=== PATIENT | male | born 1970 | race Caucasian/White ===

== ENCOUNTER 2022-06-07 07:19 | Outpatient (CLI) | payer BC, SELFPAY ==
--- OUTSIDE RECORDS SUMMARY | 2022-06-07 07:23 | XMS_ITS | Clinical Summary ---
:1970 Author Organization [facility] [place] [address] Care Team Providers Name Role Phone [facility] Primary Care Provider Allergies No known active allergies Medications No known medications Active Problems Not on file Social History Tobacco Use Types Packs/Day Years Used Date Never Smoker Smokeless Tobacco: Former User Chew Sex Assigned at Date Recorded Not on file Obstetrics History Last Filed Vital Signs Vital Sign Reading Time Taken Comments Blood Pressure 136/84 07/24/2017 3:02 PM CDT Pulse 104 07/24/2017 3:02 PM CDT Temperature 36.8 ??C (98.3 ??F) 07/24/2017 3:02 PM CDT Respiratory Rate 20 07/24/2017 3:02 PM CDT Oxygen Saturation 96% 07/24/2017 3:02 PM CDT Inhaled Oxygen Concentration - - Weight 86.2 kg (190 lb) 07/24/2017 3:02 PM CDT Height - - Body Mass Index - - Plan of Treatment Health Maintenance Due Date Last Done Comments COVID-19 vaccine series (#1) 1970 Tdap 1981 Depression screening for age 12+ 1982 BMI (ht and wt on same day) for age 18+ 1988 Hepatitis C screening for age 18-79 1988 Tetanus booster 1990 Colonoscopy through age 75 2015 Lipids for age 45-75 2015 Zoster (shingles) series for age 50+ (1 of 2) 2020 Influenza for age 50-64 06/07/2022 Results Not on filefrom Last 3 Months Insurance Payer Benefit Plan / Subscriber ID Effective Dates Phone Addre ss Type Group BLUE CROSS BLUE CROSS OF [id number] 2005-Present [address] [address] [place] [address] Care Teams Exhibit Display Representative Relationship Specialty Start Date End Date [place] [facility] [place] 04/16/07 [address] [place] [address]
--- OUTSIDE RECORDS SUMMARY | 2022-06-07 07:23 | XMS_ITS | Encounter Summary ---
:1970 Author Organization [facility] Address [address] [place] [address] Care Team Providers Name Role Phone Jennifer Foster MD Primary Care Provider Reason for Visit Reason Comments Cough x 2.5 weeks, productive, wor se when lying down Encounter Details Date Type Department Care Team Description 08/14/2021 Office Visit [place] Rhett Spear, Cough (Primary Dx); [address] Elevated blood pressure reading; [place], [place] [address] Elevated fasting glucose; [address] [place], [place] Elevated LDL cholesterol lev el [phone] Social History Tobacco Use Types Packs/Day Years Used Date Never Smoker Smokeless Tobacco: Current User Chew Alcohol Use Standard Drinks/Week Comments Not Currently 0 (1 standard drink = 0.6 oz pure alcoho l) Sex Assigned at Date Recorded Not on file documented as of this encounter Last Filed Vital Signs Vital Sign Reading Time Taken Comments Blood Pressure 134/85 08/14/2021 2:59 PM RESOURCE ENGINEER Pulse 98 08/14/2021 2:32 PM RESOURCE ENGINEER Temperature 36.6 ??C (97.9 ??F) 08/14/2021 2:32 PM RESOURCE ENGINEER Respiratory Rate 16 08/14/2021 2:32 PM RESOURCE ENGINEER Oxygen Saturation 94% 08/14/2021 2:32 PM RESOURCE ENGINEER Inhaled Oxygen Concentration - - Weight 86.5 kg (190 lb 9.6 oz) 08/14/2021 2:32 PM RESOURCE ENGINEER Height 173.5 cm (5' 8.31) 08/14/2021 2:32 PM RESOURCE ENGINEER Body Mass Index 28.72 08/14/2021 2:32 PM RESOURCE ENGINEER documented in this encounter Patient Instructions Patient InstructionsRhett Spear MD - 08/14/2021 2:20 PM CST Follow up in 1-2 weeks for general physical exam. Try tessalon sergio for cough, if not improving or if worsening let us know or go to ER. URCE ENGINEER documented in this encounter Progress Notes Rhett Spear MD - 08/14/2021 2:20 PM CST Subjective Patient ID: Colten Jay is a 51 y.o. male. Chief Complaint Patient presents with ??? Cough x 2.5 weeks, productive, worse when lying down HPI Patient is a 51-year-old without significant past medical history who reports 2.5 weeks of cough. Symptoms started after returning from a trip to [place] (was [place] hunting). Cough is worst when waking up in the morning and at night before bed. Lying down makes it worse. No shortness of breath with lying down. In the mornings he has some phlegm coming up in the cough. No hemoptysis. Denies fevers or chills. Has tried nyquil at night which does not help. No sick contacts. Has some mild allergies in the Spring but has not been bothering him recently. Denies lower extremity swelling. No heart palpitations or chest pain. The following portions of the patient's chart were reviewed in this encounter and updated as appropriate: Tobacco Allergies Meds Problems Med Hx Surg Hx Fam Hx Soc Hx ROS ROS done as noted in HPI Objective Visit Vitals BP 134/85 Pulse 98 Temp 36.6 ??C (97.9 ??F) (Temporal) Resp 16 Ht 1.735 m (5' 8.31) Wt 86.5 kg (190 lb 9.6 oz) SpO2 94% BMI 28.72 kg/m?? Smoking Status Never Smoker BSA 2.04 m?? Physical Exam Vitals reviewed. Constitutional: General: He is not in acute distress. Appearance: He is not ill-appearing, toxic-appearing or diaphoretic. HENT: Mouth/Throat: Mouth: Mucous membranes are moist. Pharynx: No oropharyngeal exudate. Cardiovascular: Rate and Rhythm: Normal rate and regular rhythm. Heart sounds: No murmur heard. Pulmonary: Effort: Pulmonary effort is normal. No respiratory distress. Breath sounds: Rhonchi present. No wheezing or rales. Chest: Chest wall: No tenderness. Neurological: Mental Status: He is alert. Assessment/Plan Diagnosis Plan 1. Cough benzonatate (TESSALON) 200 MG capsule 2. Elevated blood pressure reading CBC Branch Off w/Diff Basic metabolic panel 3. Elevated fasting glucose Hemoglobin A1c 4. Elevated LDL cholesterol level Lipid panel Assessment is a viral URI. Tessalon pearls and symptomatic cares. Return if worsening. Also noted history of elevated fasting glucose and LDL, he will return later this week fasting for labs. Blood pressure is also elevated Patient Instructions Follow up in 1-2 weeks for general physical exam. Try tessalon sergio for cough, if not improving or if worsening let us know or go to ER. Return in about 4 days (around 08/18/2021) for Lab visit (fasting). URCE ENGINEER documented in this encounter Plan of Treatment Not on filedocumented as of this encounter Results (ABNORMAL) Lipid panel (08/18/2021 10:01 AM RESOURCE ENGINEER) athologist Signature Cholesterol 178 0 - 199 08/18/2021 [facility] mg/dL 6:49 PM [facility] Comment: Recommended by National Cholesterol Education Program (ATP III) -------- Cholesterol Ranges -------- <200 ?Desirable 200-239 ? Borderline high >=240 ? High Triglycerides 111 0 - 149 mg/dL 08/18/2021 6:49 PM [facility] Comment: -------- TRIG Ranges -------- <150 ?Normal 150-199 ? Borderline high 200-499 ? High >=500 ? Very high HDL 37 (L) 40 - 250 mg/dL 08/18/2021 6:49 PM [facility] Comment: -------- HDL Ranges -------- <40 ?Low 40-59 ?Normal >=60 ? Optimal LDL Calculated 119 (H) 0 - 99 mg/dL 08/18/2021 6:49 PM RESOURCE ENGINEER [facility] Comment: -------- LDL Ranges -------- <100 ? Optimal 100-129 ?Near optimal/above op timal 130-159 ?Borderline high 160-189 ?High >=190 ?Very high Fasting? Yes 08/18/2021 10:12 AM RESOURCE ENGINEER [facility] Specimen Anatomical Collection Method Collection Time Receive d Time (Source) Location / / Volume Laterality Blood (Blood, 08/18/2021 10:01 08/18/2021 6:07 Venous) AM RESOURCE ENGINEER PM RESOURCE ENGINEER Rhett Spear MD LAB BLOOD ORDERABLES Performing Organization Address City/State/ZIP Code Phon e Number [facility] [address] [place] [phone] (ABNORMAL) Basic metabolic panel (08/18/2021 10:01 AM RESOURCE ENGINEER) P athologist Signature Sodium 141 135 - 145 08/18/2021 [facility] mmol/L 2:59 PM RESOURCE ENGINEER [place] Potassium 4.3 3.5 - 5.1 08/18/2021 [facility] mmol/L 2:59 PM RESOURCE [facility]INE[facility] [place] Comment: . Chloride 105 98 - 107 mmol/L 08/18/2021 2:59 PM RESOURCE ENGINEER [facility] [place] Comment: . CO2 28 22 - 31 mmol/L 08/18/2021 2:59 PM RESOURCE ENGINEER [facility] [place] Comment: . Creatinine 0.7 0.6 - 1.4 mg/dL 08/18/2021 2:59 PM RESOURCE ENGINEER [facility] [place] Comment: . BUN 14 5 - 25 mg/dL 08/18/2021 2:59 PM RESOURCE ENGINEER [facility] [place] Comment: . Glucose 182 (H) 70 - 100 mg/dL 08/18/2021 2:59 PM RESOURCE ENGINEER [facility] [place] Calcium, Total,S 9.3 8.4 - 10.2 mg/dL 08/18/2021 2:59 PM RESOURCE ENGINEER [facility] [place] Comment: . Specimen Anatomical Collection Method Collection Time Receive d Time (Source) Location / / Volume Laterality Blood (Blood, 08/18/2021 10:01 08/18/2021 Venous) AM RESOURCE ENGINEER 10:12 AM RESOURCE ENGINEER Rhett Spear MD LAB BLOOD ORDERABLES Performing Organization Address City/State/ZIP Code Phon e Number [facility] [address] [place] [address] CBC Branch Off w/Diff (08/18/2021 10:01 AM RESOURCE ENGINEER) P athologist Signature WBC 6.6 3.5 - 10.5 08/18/2021 [facility] K/uL 10:14 AM RESOURCE ENGINEER [place] RBC 5.24 4.30 - 08/18/2021 [facility] 5.70 M/uL 10:14 AM RESOURCE ENGINEER [place] Hemoglobin 15.5 13.5 - 08/18/2021 [facility] 17.5 g/dL 10:14 AM RESOURCE ENGINEER [place] Hematocrit 44.7 38.0 - 08/18/2021 [facility] 50.0 % 10:14 AM RESOURCE ENGINEER [place] Platelets 294 150 - 450 08/18/2021 [facility] K/uL 10:14 AM RESOURCE ENGINEER [place] MCV 85.3 81.2 - 08/18/2021 [facility] 95.1 fL 10:14 AM RESOURCE ENGINEER [place] MCH 29.6 26.0 - 08/18/2021 [facility] 32.0 pg 10:14 AM RESOURCE ENGINEER [place] MCHC 34.7 32.0 - 08/18/2021 [facility] 36.0 g/dL 10:14 AM RESOURCE ENGINEER [place] RDW 12.3 11.8 - 08/18/2021 [facility] 15.6 % 10:14 AM RESOURCE ENGINEER [place] Lymphocytes % 34.3 % 08/18/2021 [facility] 10:14 AM RESOURCE ENGINEER [place] Mid-size Cells 11.3 % 08/18/2021 [facility] 10:14 AM RESOURCE ENGINEER [place] Granulocytes/Nora 54.4 % 08/18/2021 [facility] trophils 10:14 AM RESOURCE ENGINEER [place] Lymphocytes 2.3 0.9 - 2.9 08/18/2021 [facility] Absolute K/uL 10:14 AM RESOURCE ENGINEER [place] MIDS Absolute 0.7 0.4 - 1.5 08/18/2021 [facility] K/uL 10:14 AM RESOURCE ENGINEER [place] Granulocytes/Nora 3.6 1.7 - 7.0 08/18/2021 [facility] trophils K/uL 10:14 AM RESOURCE ENGINEER [place] Absolute Specimen Anatomical Collection Method Collection Time Receive d Time (Source) Location / / Volume Laterality Blood 08/18/2021 10:01 08/18/2021 AM RESOURCE ENGINEER 10:12 AM RESOURCE ENGINEER Rhett Spear MD LAB BLOOD ORDERABLES Performing Organization Address City/[facility]/ZIP Code Phon e Number [facility] [place] [address] [place] [address] (ABNORMAL) Hemoglobin A1c (08/18/2021 10:01 AM RESOURCE ENGINEER) Analysis Performed At Patho logist Time Signature Hemoglobin A1C 8.9 (H) 4.0 - 5.6 08/18/2021 [place] % A1C 8:37 PM [facility] Comment: Reference Range 4.0-5.6% is for non-preg nant adults >=18 yrs <5.6% ? Non-Diabetic 5.7-6.4% ??Increased risk of Diabetes >=6.5% ?Indicative of Diabetes <7.0% ? ADA goal for glycemic contro l Methodology may not detect all hemoglobi n variants which can affect A1c results. Method certified by National Glycohemoglobin Standardization Program. Specimen Anatomical Collection Method Collection Time Receive d Time (Source) Location / / Volume Laterality Blood (Blood, 08/18/2021 10:01 08/18/2021 6:07 Venous) AM RESOURCE ENGINEER PM RESOURCE ENGINEER Rhett Spear MD LAB BLOOD ORDERABLES Performing Organization Address City/State/ZIP Code Phon e Number [facility] [address] [place] [address] documented in this encounter Visit Diagnoses Diagnosis Cough - Primary Elevated blood pressure reading Elevated blood pressure reading without diagnosis of hypertension Elevated fasting glucose Impaired fasting glucose Elevated LDL cholesterol level documented in this encounter Care Teams Clinical Informatics Specialist Relationship Specialty Start Date End Date Jennifer Fotser MD PCP - General 05/13/[address] [place] [address] documented as of this encounter
--- OUTSIDE RECORDS SUMMARY | 2022-06-07 07:23 | XMS_ITS | Encounter Summary ---
:1970 Author Organization [facility] Address [address] [place] [address] Care Team Providers Name Role Phone Jennifer Foster MD Primary Care Provider Encounter Details Date Type Department Care Team Description 11/21/2021 Lab Pb Villal[place] Type 2 diabetes mellitus [address] without complication, withou t CHE [place] 550 [address] long-term current use of [phone] insulin (HCC) Social History Tobacco Use Types Packs/Day Years Used Date Never Smoker Smokeless Tobacco: Current User Chew Alcohol Use Standard Drinks/Week Comments Not Currently 0 (1 standard drink = 0.6 oz pure alcoho l) Sex Assigned at Date Recorded Not on file documented as of this encounter Miscellaneous Notes Result Encounter Note - Rhett Spear MD - 11/21/2021 4:15 PM CST Reviewed results with patient. His A1c came down to 6.2 from 8.9 which is great. We discussed the microalbuminuria, consider adding SGLT2 inhibitor or low-dose lisinopril for kidney protection. Patientprefers to wait till next year recheck and see what his urine protein looks like at that time. ATRICIAN/MEDICAL DOCTOR documented in this encounter Plan of Treatment Not on filedocumented as of this encounter Procedures Procedure Name Priority Date/Time Associated Comments Diagnosis MICROALBUMIN/CREATIN Routine 11/21/2021 3:38 PM Type 2 diabete s Results for this INE RATIO PEDIATRICIAN/MEDICAL DOCTOR mellitus without procedure a re in complication, the results without long-term section. current use of insulin (HCC) HEMOGLOBIN A1C Routine 11/21/2021 3:32 PM Type 2 diabetes Resu lts for this PEDIATRICIAN/MEDICAL DOCTOR mellitus without procedure a re in complication, the results without long-term section. current use of insulin (HCC) documented in this encounter Results (ABNORMAL) Microalbumin/Creatinine Ratio (11/21/2021 3:38 PM PEDIATRICIAN/MEDICAL DOCTOR) Analysis Performed At [facility] Signature Microalbumin,m 30.2 (H) 0.0 - 16.6 11/22/2021 [place] g/day mg/L 1:48 PM [facility] Comment: . Creatinine, Urine 125 mg/dL 11/22/2021 1:48 PM PEDIATRICIAN/MEDICAL DOCTOR [facility] Comment: No established reference range. Microalb/Creat Ratio 24 (H) 0 - 16 mg/g 11/22/2021 1:48 P M [facility] Specimen Anatomical Collection Method Collection Time Receive d Time (Source) Location / / Volume Laterality Urine 11/21/2021 3:38 PM PEDIATRICIAN/MEDICAL DOCTOR 12:37 PM PEDIATRICIAN/MEDICAL DOCTOR Rhett Spear MD LAB URINE ORDERABLES Performing Organization Address City/[facility] Phon e Number [facility] [address] [place] [phone] (ABNORMAL) Hemoglobin A1c (11/21/2021 3:32 PM PEDIATRICIAN/MEDICAL DOCTOR) Analysis Performed At [facility] Signature Hemoglobin A1C 6.2 (H) 4.0 - 5.6 11/22/2021 [place] % A1C 1:47 PM [facility] Comment: Reference Range 4.0-5.6% is [...] Location / / Volume Laterality Blood (Blood, 11/21/2021 3:32 PM 11/22/19 22 Venous) PEDIATRICIAN/MEDICAL DOCTOR 12:37 PM PEDIATRICIAN/MEDICAL DOCTOR Rhett Spear MD LAB BLOOD ORDERABLES Performing Organization Address City/State/ZIP Code Phon e Number [facility] [address] [place] [address] documented in this encounter Visit Diagnoses Diagnosis Type 2 diabetes mellitus without complic ation, without long-term current use of insulin (HCC) documented in this encounter Care Teams Stevedore Dock Relationship Specialty Start Date End Date Jennifer Foster MD PCP - General 05/13/[address] [place] [address] documented as of this encounter
--- OUTSIDE RECORDS SUMMARY | 2022-06-07 07:23 | XMS_ITS | Clinical Summary ---
:1970 Author Organization [facility] Address [address] [place] [address] Care Team Providers Name Role Phone Jennifer Foster MD Primary Care Provider Allergies No known active allergies Medications Medication Sig Dispensed Refills Start Date End Date Status atorvastatin Take 1 tablet 90 tablet 3 08/21/2021 Ac tive (Lipitor) 10 MG (10 mg total) by tabletIndications: mouth 1 (one) Type 2 diabetes time each day mellitus without complication, without long-term current use of insulin (HCC) metFORMIN XR Take 4 tablets 360 tablet 3 11/21/2021 11/21/2022 Active (GLUCOPHAGE-XR) 500 (2,000 mg total) MG 24 hr by mouth 1 (one) tabletIndications: time each day Type 2 Diabetes with dinner Do Mellitus not crush, chew, or split. Active Problems Problem Noted Date Type 2 diabetes mellitus without complication, without long-term current 08/21/2021 use of insulin Dyslipidemia (high LDL; low HDL) 08/21/2021 Encounters Date Type Specialty Care Team Description 05/18/2022 Consult Family Medicine Rhett Spear MD Pre -op evaluation (Primary Dx); Colon cancer sc reening; Type 2 diabetes mellitus without complication, without long-term current use of insulin (HCC) 05/07/2022 Telephone Family Medicine Rhett Spear MD Col onoscopy referral from Last 3 Months Immunizations Name Administration Dates Next Due COVID-19, mRNA, LNP-S, PF, 30mcg/0.3mL 09/25/2021 dose Pfizer SARS-COV-2 (COVID-19) vaccine, vector 09/25/2021, 01/24/2021 , 01/03/2021 non-replicating, recombinant spike protein- Ad26, preservative free, 0.5mL ([employer]) Family History Medical History Relation Comments Diabetes Mother Relation Status Comments Mother Social History Tobacco Use Types Packs/Day Years Used Date Never Smoker Smokeless Tobacco: Current User Chew Alcohol Use Standard Drinks/Week Comments Not Currently 0 (1 standard drink = 0.6 oz pure alcoho l) Sex Assigned at Date Recorded Not on file Last Filed Vital Signs Vital Sign Reading Time Taken Comments Blood Pressure 125/74 05/18/2022 8:14 AM CDT Pulse 63 05/18/2022 8:14 AM CDT Temperature 36.5 ??C (97.7 ??F) 05/18/2022 8:14 AM CDT Respiratory Rate 12 05/18/2022 8:14 AM CDT Oxygen Saturation 96% 05/18/2022 8:14 AM CDT Inhaled Oxygen Concentration - - Weight 73.3 kg (161 lb 11.2 oz) 05/18/2022 8:14 AM CDT Height 173 cm (5' 8.11) 05/18/2022 8:14 AM CDT Body Mass Index 24.51 05/18/2022 8:14 AM CDT Plan of Treatment Health Maintenance Due Date Last Done Comments Colorectal Cancer Screenin1970 Colonoscopy [facility] Pneumococcal Vaccine: 1976 65+ Years (1 - PCV) [facility] Pneumococcal Vaccine: 1976 <64 (1 - PCV) Diabetic Foot Exam 08/21/2022 08/21/2021, 08/21/2021, 08/21/2021 Ophthalmology Exam 10/05/2022 10/05/2021 Urine Protein Screening 11/21/2022 11/21/2021 COVID-19 Vaccine Completed 09/25/2021, 09/25/2021, 01/24/2021, Additional history exists HPV Vaccines Aged Out No longer eligib alpesh based on patient 's age to complete this topic Insurance Payer Benefit Plan / Subscriber ID Effective Dates Phone Addre ss Type Group BCBS OF BCBS OF [id number] 2021-Prese [address] [address] [place] [address] Care Teams Printer Repair Technician Relationship Specialty Start Date End Date Jennifer Foster MD PCP - General 05/13/[address] [place] [address]
--- OUTSIDE RECORDS SUMMARY | 2022-06-07 07:23 | XMS_ITS | Encounter Summary ---
:[address] [facility] Address [address] [place] [address] Care Team Providers Name Role Phone Jennifer Foster MD Primary Care Provider Reason for Referral Consultation (Routine) - Authorized Specialty Diagnoses / Procedures Referred By Contact Refer red To Contact Diagnoses Colon cancer screening Rhett Spear MD [facility] [address] [place] [place] [phone] Referral ID Status Reason Start Date Expiration Date Visits V isits Requested Authorized [id number] Authorized 05/07/2022 11/03/2022 1 1 Reason for Visit Reason Onset Date Comments Colonoscopy referral 05/07/2022 Encounter Details Date Type Department Care Team Description 05/07/2022 Telephone [place] Rhett Spear, Colonoscopy referral [address] [place], [place] [address] [address] [place] [phone] [place] [address] (Wo rk) Social History Tobacco Use Types Packs/Day Years Used Date Never Smoker Smokeless Tobacco: Current User Chew Alcohol Use Standard Drinks/Week Comments Not Currently 0 (1 standard drink = 0.6 oz pure alcoho l) Sex Assigned at Date Recorded Not on file documented as of this encounter Miscellaneous Notes Telephone Encounter - Eloise Garg - 05/07/2022 4:58 PM CDT Faxed referral to [facility] General Referral Line. Changed 05.18.22 appt to pre-op (awaiting DOS for colonoscopy). Telephone Encounter - Christiane Lobo RN - 05/07/2022 4:41 PM CDT Patient has been advised. Please fax. Also, patient has appointment 05/18. Spoke with PCP and he advises to make the visit a pre-op. Thank you. Telephone Encounter - Christiane Lobo RN - 05/07/2022 4:07 PM CDT Saw PCP 11/21/21 and was told to let provider know when he was ready. Patient is ready for the referral. Has 6-month follow up appointment 05/18/22 with PCP. Order it now or wait to discuss at appointment? (Patient would like to get it scheduled early June in [place], not [facility]). Please advise. Telephone Encounter - Sierra Angel - 05/07/2022 3:05 PM CDT Pt stopped in asking to start the referral process for a colonoscopy, any where EXCEPT [facility]. Pt would love this to be on 06/07/22 but if that's not possible it needs to be on a Saturday. Please call Pt at [phone] to advise. documented in this encounter Plan of Treatment Scheduled Referrals Name Type Priority Associated Order Schedule Diagnoses Ambulatory External Outpatient Referral Routine Colon cancer O rdered: Referral screening 05/07/2022 documented as of this encounter Visit Diagnoses Diagnosis Colon cancer screening - Primary Special screening for malignant neoplasm s, colon documented in this encounter Care Teams Plastic Manager Relationship Specialty Start Date End Date Jennifer Foster MD PCP - General 05/13/[address] [place] [address] documented as of this encounter
--- OUTSIDE RECORDS SUMMARY | 2022-06-07 07:23 | XMS_ITS | Encounter Summary ---
:[address] [facility] Address [address] [place] [address] Care Team Providers Name Role Phone Jennifer Foster MD Primary Care Provider Reason for Visit Consultation (Routine) - Authorized Specialty Diagnoses / Procedures Referred By Contact Refer red To Contact Nutrition Education / Diagnoses Type 2 diabetes mellitus without complication, without long-term current use of insulin (HCC) Rhett Spear, Nutrition [address] [place] [address] Referral ID Status Reason Start Expiration Visits Visits Date Date Requested Authorized [id number] Authorized Specialty 08/21/2022 1 1 Services 1 Required Encounter Details Date Type Department Care Team Description 08/24/2021 Telemedicine SE Nutrition Educati on Bandar Whitman, Type 2 diabetes [address] [facility] [facility] [place] [address] [address] [facility] complication, without [phone] long-term current use [place] of insulin (HC C) [id number] Social History Tobacco Use Types Packs/Day Years Used Date Never Smoker Smokeless Tobacco: Current User Chew Alcohol Use Standard Drinks/Week Comments Not Currently 0 (1 standard drink = 0.6 oz pure alcoho l) Sex Assigned at Date Recorded Not on file documented as of this encounter Progress Notes Bandar Whitman RD - 08/24/2021 7:30 AM CST [facility] Patient Name: Colten Jay Patient Identifier: [id number] Service Location: [facility] NUTRITION EDUCATION [address] [facility] [address] Service Date: 08/24/2021 Initial/Comprehensive Diabetes Visit- RD Visit LOCATION: Pending Sale To [facility]- Telehealth REFERRING CLINICIAN: Dr. Rhett Spear REFERRAL DATE: 08/21/2021 REASON FOR REFERRAL: Comprehensive/initial education REASON FOR REFERRAL: Type 2 Diabetes Mellitus, uncontrolled CLINICAL ASSESSMENT: Patient Age: 51 y.o. Height: BP Readings from Last 1 Encounters: 08/21/21 112/74 Weight: Wt Readings from Last 1 Encounters: 08/21/21 86.6 kg (191 lb) BMI: Estimated body mass index is 28.78 kg/m?? as calculated from the following: Height as of 08/14/21: 1.735 m (5' 8.31). Weight as of 08/21/21: 86.6 kg (191 lb). Basal Calorie Needs: Race/Ethnicity: White/ Preferred Language: PERTINENT LABS: Hemoglobin A1C Lab Results Component Value Date HGBA1C 8.9 (H) 08/18/2021 LIPIDS Lab Results Component Value Date CHOL 178 08/18/2021 CHOL 200 (A) 07/31/2017 Lab Results Component Value Date HDL 37 (L) 08/18/2021 HDL 53 07/31/2017 Lab Results Component Value Date LDLCALC 119 (H) 08/18/2021 LDLCALC 131 (A) 07/31/2017 Lab Results Component Value Date TRIG 111 08/18/2021 TRIG 78 07/31/2017 MEDICATIONS: Last updated by: Nubia Najera RN On: 08/21/2021 NUTRITIONAL DIAGNOSIS: Nutritional Diagnosis: Excessive carbohydrate intake- Related to high carbohydrate intake at meals/snacks- Evidenced by patient's report/questions. INTERVENTION AND EVALUATION: Patient was seen for 30 minutes of which 90% was spent on education given on the following areas with post instruction knowledge assessed: HEALTHY EATING Food choices to control blood sugar- Needs review/assistance. Patient is here for nutrition education appointment. This is his initial visit with a dietitian. States he is very motivated to make lifestyle modifications to manage his diabetes. He is not interestedin checking his blood sugar or meeting with a primary special educator at this point. States since finding out about the diagnosis he has cut back in his consumption of candy and is reducing his portions. Reviewed his 24 food recall, for breakfast he usually has leftovers from the night before and fruit. In between meals he is snacking on fruit. Evening meals are usually balanced, a starch, lean protein andvegetable. States he knows what he needs to do to lose weight as he has been successful in the past.He would like to get down to 160- 170 pounds. BEING ACTIVE Types of activity and their effect on blood sugar, cholesterol, blood pressure and weight- Needs review/assistance. Patient states he is very active in his job. He walks on average 3 to 4 miles a day. His doctor saidthat he will need to incorporate activity that gets his heart rate up. He does have a membership to [employer] and will consider going 1-2 times a week. MEDICATION Metformin XR 500 PROBLEM SOLVING How to deal with specific problems about healthy eating- Needs review/assistance. ADDITIONAL EDUCATION IS: needed TOTAL DSMT MINUTES: TOTAL MNT MINUTES: 35 DIABETES SELF-MANAGEMENT SUPPORT PLAN: For ongoing support, I choose to review materials provided to him. GOAL SETTING AND ACHIEVEMENT: 1. To help manage diabetes, I will limit consumption of candy. Patient reported achievement: New goal. 2. To help manage diabetes, I will limit portions and follow the plate guide. Patient reported achievement: New goal. 3. To help manage weight, I will continue incorporate regular physical activity. Patient reported achievement: New goal. MONITORING GOAL: To bring blood sugars into normal range, I will take my medications as directed by my Primary Care Provider. Patient achievement:: All of the time Bandar Whitman RD IT[place] PORTER documented in this encounter Plan of Treatment Scheduled Referrals Name Type Priority Associated Order Schedule Diagnoses Ambulatory referral Outpatient Referral Routine Type 2 diabete s Ordered: to Nutrition mellitus without 08/21/2021 Services complication, without long-term current use of insulin (HCC) documented as of this encounter Visit Diagnoses Diagnosis Type 2 diabetes mellitus without complic ation, without long-term current use of insulin (HCC) documented in this encounter Care Teams Budget Clerk Relationship Specialty Start Date End Date Jennifer Foster MD PCP - General 05/13/[address] [place] [address] documented as of this encounter
--- OUTSIDE RECORDS SUMMARY | 2022-06-07 07:23 | XMS_ITS | Encounter Summary ---
:[address] [facility] Address [address] [place] [address] Care Team Providers Name Role Phone Jennifer Foster MD Primary Care Provider Reason for Visit Reason Comments Pre-op Exam colonoscopy Encounter Details Date Type Department Care Team Description 05/18/2022 Consult [place] Rhett Spear, Pre-op evaluation (Primary D x); [address] [facility] screening; [place], [place] [address] [place] Type 2 diabetes mellitus without complic ation, without long-term current use of insulin ([facility]) [phone] [place] [phone] (Wo rk) Social History Tobacco Use Types [...] Mass Index 24.51 05/18/2022 8:14 AM CDT documented in this encounter Patient Instructions Patient InstructionsCharfernandez Spear MD - 05/18/2022 8:00 AM CDT Call [facility] about the COVID testing, and let us know if you can do it here if needed. If you want to decrease metformin to 1000 mg nightly that is fine, but OK to continue at 2000 mg nightly documented in this encounter Progress Notes Sierra Angel - 05/18/2022 8:00 AM CDT Colonoscopy pre-op paperwork faxed to [facility]. documented in this encounter H&P Notes Rhett Spear MD - 05/18/2022 8:00 AM CDT Preoperative evaluation Assessment/Plan Colten Jay is an 52 y.o. male. Here for a preoperative evaluation for colonoscopy. This surgery is scheduled to be performed by [facility] surgeons 06/07/2022. The preoperative risk assessment has determined the following: No contraindications to planned surgery Colten was seen today for pre-op exam. Diagnoses and all orders for this visit: Pre-op evaluation (Primary) Colon cancer screening Type 2 diabetes mellitus without complication, without long-term current use of insulin (HCC) - Hemoglobin A1c; Future - Lipid panel; Future - Basic metabolic panel; Future - CBC Branch Off w/Diff; Future Labs as above are for annual diabetic follow-up in 6 months, do not need to be performed prior to colonoscopy. HPI: Patient is here for preoperative evaluation for colonoscopy for colon cancer screening. Patient is a fairly recently diagnosed type II diabetic on metformin and atorvastatin. He has lost about 30 pounds, watching his diet and exercising. His last A1c was 6.2 on 11/21/2021. Is wondering if he needs fasting labs today. His last lipid panel was August 2021, same time he was diagnosed with type 2 diabetes. No recent illness. Patient states he supposed to get COVID tested prior to the colonoscopy. No personal or family history of reactions to anesthesia or bleeding problems. His only prior procedure in his lifetime was wisdom teeth removal. He had no problems with that. Current Outpatient Medications: ??? atorvastatin (Lipitor) 10 MG tablet, Take 1 tablet (10 mg total) by mouth 1 (one) time each day,Disp: 90 tablet, Rfl: 3 ??? metFORMIN XR (GLUCOPHAGE-XR) 500 MG 24 hr tablet, Take 4 tablets (2,000 mg total) by mouth 1 (one) time each day with dinner Do not crush, chew, or split., Disp: 360 tablet, Rfl: 3 Allergies: Patient has no known allergies. History reviewed. No pertinent surgical history. Past Medical History: Diagnosis Date ??? Diabetes mellitus (HCC) Family History Problem Relation Age of Onset ??? Diabetes Mother Social History Socioeconomic History ??? Marital status: Tobacco Use ??? Smoking status: Never Smoker ??? Smokeless tobacco: Current User Types: Chew Vaping Use ??? Vaping Use: Never used Substance and Sexual Activity ??? Alcohol use: Not Currently Review of Systems Constitutional: Negative. Negative for chills and fever. Respiratory: Negative for cough and shortness of breath. Cardiovascular: Negative for chest pain and palpitations. Objective Pulmonary Risk SpO2: 96 % Visit Vitals BP 125/74 (BP Location: Left arm, Patient Position: Sitting, BP Cuff Size: Adult) Pulse 63 Temp 36.5 ??C (97.7 ??F) (Temporal) Resp 12 Ht 1.73 m (5' 8.11) Wt 73.3 kg (161 lb 11.2 oz) SpO2 96% BMI 24.51 kg/m?? Smoking Status Never Smoker BSA 1.88 m?? Physical Exam Vitals reviewed. Constitutional: Appearance: He is not ill-appearing or diaphoretic. Cardiovascular: Rate and Rhythm: Normal rate and regular rhythm. Heart sounds: Normal heart sounds. No murmur heard. Pulmonary: Effort: Pulmonary effort is normal. No respiratory distress. Breath sounds: Normal breath sounds. No wheezing or rales. Neurological: Mental Status: He is alert. Radiology Tests to be Ordered: None Additional Tests to be Ordered: None Laboratory Tests to be Ordered: None Special Note to Anesthesia if needed: None Referrals/Consultations: None Comments: You should not drive for at least 24 hours after your surgery, or as instructed by your surgeon. Do NOT take ibuprofen, Aleve and Aspirin 7 days prior to surgery. Do NOT take vitamins or other nutritional supplements 7 days prior to surgery. You will receive detailed instructions from your doctor about which of your usual medications to take and which NOT to take before surgery. If you have been instructed to take any medications on the morning of surgery, take them with a small sip of water. Otherwise, remember to NOT take any foods or liquids by mouth after MIDNIGHT the evening before surgery. If you have been told that you will be going home after surgery and not staying overnight in the hospital, remember to bring a friend or family member with you the day of surgery who can stay with you during your recovery period and who can drive you home. Medication Instructions: Patient takes atorvastatin and metformin in the evening. No change to medication regimen. documented in this encounter Plan of Treatment Scheduled Orders Name Type Priority Associated Diagnoses Order S chedule Hemoglobin A1c Lab Routine Type 2 diabetes mellitus E xpected: 11/18/2022 without complication, (Appro ximate), Expires: without long-term current use of insulin (HCC) CBC Branch Off w/Diff Lab Routine Type 2 diabetes ney litus Expected: 11/18/2022 without complication, (Appro ximate), Expires: without long-term current use of insulin (HCC) Basic metabolic panel Lab Routine Type 2 diabetes ney litus Expected: 11/18/2022 without complication, (Appro ximate), Expires: without long-term current use of insulin (HCC) Lipid panel Lab Routine Type 2 diabetes mellitus Exp ected: 11/18/2022 without complication, (Appro ximate), Expires: without long-term current use of insulin (HCC) documented as of this encounter Visit Diagnoses Diagnosis Pre-op evaluation - Primary Colon cancer screening Special screening for malignant neoplasm s, colon Type 2 diabetes mellitus without complic ation, without long-term current use of insulin (HCC) documented in this encounter Care Teams Unhairer Relationship Specialty Start Date End Date Jennifer Foster MD PCP - General 05/13/[address] [place] [address] documented as of this encounter
--- OUTSIDE RECORDS SUMMARY | 2022-06-07 07:23 | XMS_ITS | Encounter Summary ---
:1970 Author Organization [facility] Address [address] [place] [address] Care Team Providers Name Role Phone Jennifer Foster MD Primary Care Provider Encounter Details Date Type Department Care Team Description 08/18/2021 Lab [place] Elevated LDL cholesterol lev el; [address] Elevated blood pressure read ing; [place], [place] [address] Elevated fasting glucose [phone] Social History Tobacco Use Types Packs/Day Years Used Date Never Smoker Smokeless Tobacco: Current User Chew Alcohol Use Standard Drinks/Week Comments Not Currently 0 (1 standard drink = 0.6 oz pure alcoho l) Sex Assigned at Date Recorded Not on file documented as of this encounter Miscellaneous Notes Result Encounter Note - Rhett Spear MD - 08/18/2021 10:00 AM CST A1C is 8.9, new diagnosis of T2DM. I talked to patient. He will come in for an office visit to discuss new diagnosis and start medications/ set up referrals. [facility] SPECIALIST documented in this encounter Plan of Treatment Not on filedocumented as of this encounter Procedures Procedure Name Priority Date/Time Associated Diagnosis Comme nts GLOMERULAR Routine 08/18/2021 10:01 Elevated blood Results f or this FILTRATION RATE AM [facility] SPECIALIST pressure reading procedur e are in the results section. CBC BRANCH OFFICE Routine 08/18/2021 10:01 Elevated blood Resu lts for this W/DIFF AM [facility] SPECIALIST pressure reading procedure a re in the results section. HEMOGLOBIN A1C Routine 08/18/2021 10:01 Elevated fasting Resul ts for this AM [facility] SPECIALIST glucose procedure are i n the results section. LIPID PANEL Routine 08/18/2021 10:01 Elevated LDL Results for this AM [facility] SPECIALIST cholesterol level procedure are in the results section. BASIC METABOLIC Routine 08/18/2021 10:01 Elevated blood Result s for this PANEL AM [facility] SPECIALIST pressure reading procedure a re in the results section. documented in this encounter Results Glomerular filtration rate (GFR) (08/18/2021 10:01 AM SERV[facility] C[facility] SPECIALIST) P athologist Signature GFR >60 08/18/2021 [facility] 2:59 PM SERVICE CENTER SPECIALIST [facility] >60 08/18/2021 [facility] Syrian GFR 2:59 PM [facility] Comment: GFR calculated from serum creatinine v alue Chronic Kidney Disease less than 60 mL/m in/1.73 m2 Kidney Failure less than 15 mL/min/1.73 m2 Note: effective 02/19/07 IDMS-Traceable MDRD Study Equation used. Specimen Anatomical Collection Method Collection Time Receive d Time (Source) Location / / Volume Laterality 08/18/2021 10:01 08/18/2021 AM [facility] 10:01 AM [facility] SPECIALIST Rhett Spear MD LAB BLOOD ORDERABLES Performing Organization Address City/State/ZIP Code Phon e Number [facility] [address] [place] [address] (ABNORMAL) Hemoglobin A1c (08/18/2021 10:01 AM SERV[facility] C[facility] SPECIALIST) Analysis Performed At Patho logist Time Signature Hemoglobin A1C 8.9 (H) 4.0 - 5.6 08/18/2021 [place] % A1C 8:37 PM [facility] Comment: Reference Range 4.0-5.6% is for [...] (Blood, 08/18/2021 10:01 08/18/2021 6:07 Venous) AM [facility] SPECIALIST PM [facility] SPECIALIST Rhett Spear MD LAB BLOOD ORDERABLES Performing Organization Address City/State/ZIP Code Phon e Number [facility] [address] [place] [phone] CBC Branch Off w/Diff (08/18/2021 10:01 AM [facility] SPECIALIST) P athologist Signature WBC 6.6 3.5 - 10.5 08/18/2021 [facility] K/uL 10:14 AM [facility]IST [place] RBC 5.24 4.30 - 08/18/2021 [facility] 5.70 M/uL 10:14 AM [facility] [place] Hemoglobin 15.5 13.5 - 08/18/2021 [facility] 17.5 g/dL 10:14 AM [facility] [place] Hematocrit 44.7 38.0 - 08/18/2021 [facility] 50.0 % 10:14 AM [facility] [place] Platelets 294 150 - 450 08/18/2021 [facility] K/uL 10:14 AM [facility] [place] MCV 85.3 81.2 - 08/18/2021 [facility] 95.1 fL 10:14 AM [facility] [place] MCH 29.6 26.0 - 08/18/2021 [facility] 32.0 pg 10:14 AM [facility] [place] MCHC 34.7 32.0 - 08/18/2021 [facility] 36.0 g/dL 10:14 AM [facility] [place] RDW 12.3 11.8 - 08/18/2021 [facility] 15.6 % 10:14 AM [facility] [place] Lymphocytes % 34.3 % 08/18/2021 [facility] 10:14 AM [facility] [place] Mid-size Cells 11.3 % 08/18/2021 [facility] 10:14 AM [facility] [place] Granulocytes/Nora 54.4 % 08/18/2021 [facility] trophils 10:14 AM [facility] [place] Lymphocytes 2.3 0.9 - 2.9 08/18/2021 [facility] Absolute K/uL 10:14 AM [facility] [place] MIDS Absolute 0.7 0.4 - 1.5 08/18/2021 [facility] K/uL 10:14 AM [facility] [place] Granulocytes/Nora 3.6 1.7 - 7.0 08/18/2021 [facility] trophils K/uL 10:14 AM [facility] [place] Absolute Specimen Anatomical Collection Method Collection Time Receive d Time (Source) Location / / Volume Laterality Blood 08/18/2021 10:01 08/18/2021 AM [facility] 10:12 AM [facility] SPECIAL[facility] Rhett Spear MD LAB BLOOD ORDERABLES Performing Organization Address City/[facility]/ZIP Code Phon e Number [place] [address] [place] [address] (ABNORMAL) Basic metabolic panel (08/18/2021 10:01 AM [facility] SPECIALIST) P athologist Signature Sodium 141 135 - 145 08/18/2021 [facility] mmol/L 2:59 PM [facility] SPECIALIST [place] Potassium 4.3 3.5 - 5.1 08/18/2021 [facility] mmol/L 2:59 PM [facility] SPECIAL[facility] [place] Comment: . Chloride 105 98 - 107 mmol/L 08/18/2021 2:59 PM SERVICE CENTER SPECIALIST [facility] [place] Comment: . CO2 28 22 - 31 mmol/L 08/18/2021 2:59 PM [facility] SPECIALIST [facility] [place] Comment: . Creatinine 0.7 0.6 - 1.4 mg/dL 08/18/2021 2:59 PM [facility] SPECIALIST [facility] [place] Comment: . BUN 14 5 - 25 mg/dL 08/18/2021 2:59 PM SERVICE CENTER SPECIALIST [facility] Comment: . Glucose 182 (H) 70 - 100 mg/dL 08/18/2021 2:59 PM [facility] SPECIALIST C [facility] [place] Calcium, Total,S 9.3 8.4 - 10.2 mg/dL 08/18/2021 2:59 PM [facility] CENTER SPECIALIST [facility] Comment: . Specimen Anatomical Collection Method Collection Time Receive d Time (Source) Location / / Volume Laterality Blood (Blood, 08/18/2021 10:01 08/18/2021 Venous) AM [facility] SPECIALIST 10:12 AM [facility] SPECIALIST Rhett Spear MD LAB BLOOD ORDERABLES Performing Organization Address City/State/ZIP Code Phon e Number [facility] [place] [address] [place] [address] (ABNORMAL) Lipid panel (08/18/2021 10:01 AM SERV[facility] CENTER SPECIALIST) P athologist Signature Cholesterol 178 0 - 199 08/18/2021 [facility] mg/dL 6:49 PM [facility] SPECIALIST [facility] Comment: Recommended by National Cholesterol Education Program (ATP III) -------- Cholesterol Ranges -------- <200 ?Desirable 200-239 ? Borderline high >=240 ? High Triglycerides 111 0 - 149 mg/dL 08/18/2021 6:49 PM [facility] Comment: -------- TRIG Ranges -------- <150 ?Normal 150-199 ? Borderline high 200-499 ? High >=500 ? Very high HDL 37 (L) 40 - 250 mg/dL 08/18/2021 6:[address] [facility] Comment: -------- HDL Ranges -------- <40 ?Low 40-59 ?Normal >=60 ? Optimal LDL Calculated 119 (H) 0 - 99 mg/dL 08/18/2021 6:49 PM [facility] Comment: -------- LDL Ranges -------- <100 ? Optimal 100-129 ?Near optimal/above op timal 130-159 ?Borderline high 160-189 ?High >=190 ?Very high Fasting? Yes 08/18/2021 10:12 AM [facility] Specimen Anatomical Collection Method Collection Time Receive d Time (Source) Location / / Volume Laterality Blood (Blood, 08/18/2021 10:01 08/18/2021 6:07 Venous) AM [facility] C[facility] SPECIALIST PM [facility] SPECIALIST Rhett Spear MD LAB BLOOD ORDERABLES Performing Organization Address City/State/ZIP Code Phon e Number [facility] [address] [place] [address] documented in this encounter Visit Diagnoses Diagnosis Elevated LDL cholesterol level Elevated blood pressure reading Elevated blood pressure reading without diagnosis of hypertension Elevated fasting glucose Impaired fasting glucose documented in this encounter Care Teams Custom Framing Specialist Relationship Specialty Start Date End Date Jennifer Foster MD PCP - General 05/13/[address] [place] [address] documented as of this encounter
--- OUTSIDE RECORDS SUMMARY | 2022-06-07 07:23 | XMS_ITS | Encounter Summary ---
:1970 Author Organization [facility] Address [address] [place] [address] Care Team Providers Name Role Phone Jennifer Foster MD Primary Care Provider Reason for Visit Reason Comments Follow-up Encounter Details Date Type Department Care Team Description 11/21/2021 Office Visit Vinnie Villalba Rhett Spear, Dyslipidemia (high LDL; low HDL) (Primary Dx); [address] [facility] Type 2 diabetes mellitus without complic ation, without long-term current use of insulin (HCC) [place], [place] [address] [place] [address] [place], [place] [phone] [id number] Social History Tobacco Use Types Packs/Day Years Used Date Never Smoker Smokeless Tobacco: Current User Chew Alcohol Use Standard Drinks/Week Comments Not Currently 0 (1 standard drink = 0.6 oz pure alcoho l) Sex Assigned at Date Recorded Not on file documented as of this encounter Last Filed Vital Signs Vital Sign Reading Time Taken Comments Blood Pressure 110/82 11/21/2021 3:09 PM REPAIR COIL WINDER Pulse 88 11/21/2021 3:09 PM REPAIR COIL WINDER Temperature 36.7 ??C (98 ??F) 11/21/2021 3:09 PM REPAIR COIL WINDER Respiratory Rate 12 11/21/2021 3:09 PM REPAIR COIL WINDER Oxygen Saturation 94% 11/21/2021 3:09 PM REPAIR COIL WINDER Inhaled Oxygen Concentration - - Weight 81.9 kg (180 lb 9.6 oz) 11/21/2021 3:09 PM REPAIR COIL WINDER Height 172.3 cm (5' 7.84) 11/21/2021 3:09 PM REPAIR COIL WINDER Body Mass Index 27.59 11/21/2021 3:09 PM REPAIR COIL WINDER documented in this encounter Progress Notes Rhett Spear MD - 11/21/2021 3:20 PM CST Subjective Patient ID: Colten Jay is a 51 y.o. male. Chief Complaint Patient presents with ??? Follow-up HPI Patient here for diabetes follow up visit. He has had diabetes for at least the last year with prediabetic-range fasting blood sugar first noted in 2016. In August 2021 A1C was checked for first timeand it was 8.9. He was started on metformin and has been taking for the past few months up to 2000 mg daily and tolerating well. Occasionally has some looser stools but nothing significant or enough tomake him not take the medications. He is tolerating lipitor no problems. Needs A1C and urine microalbumin today (already ordered). He cut out candy and pop. Has been going to [employer] as well. He lost about 15 pounds over the few months and gained a few back during a vacation to [place] recently. He says this is the best he hasfelt physically in many years. UTD on eye clinic visit (September 2021). Declines COLON cancer screening at this time. Would like to do colonoscopy at some point this year in [place] and will let me know when he is ready to have that referral. Declines SHINGRIX and PPSV-23 at this time. The following portions of the patient's chart were reviewed in this encounter and updated as appropriate: Tobacco Allergies Meds Med Hx Surg Hx Fam Hx Soc Hx ROS ROS done as noted in HPI Objective Visit Vitals BP 110/82 (BP Location: Left arm, Patient Position: Sitting, BP Cuff Size: Large adult) Pulse 88 Temp 36.7 ??C (98 ??F) (Temporal) Resp 12 Ht 1.723 m (5' 7.84) Wt 81.9 kg (180 lb 9.6 oz) SpO2 94% BMI 27.59 kg/m?? Smoking Status Never Smoker BSA 1.98 m?? Physical Exam Vitals reviewed. Cardiovascular: Rate and Rhythm: Normal rate and regular rhythm. Heart sounds: Normal heart sounds. Neurological: Mental Status: He is alert. Assessment/Plan Diagnosis Plan 1. Dyslipidemia (high LDL; low HDL) 2. Type 2 diabetes mellitus without complication, without long-term current use of insulin (HCC) metFORMIN XR (GLUCOPHAGE-XR) 500 MG 24 hr tablet A1C and microalbumin collected today. Reordered metformin, if needed, will add medication and will call and discuss options over phone. If at goal (A1C <7), will just continue metformin and lifestyle changes (has already seen chief operations officer this past year). If microalbuminuria, would prefer adding SGLT-2 and/or low dose ACEi. Encouraged continued diet exercise and weight loss doing great. There are no Patient Instructions on file for this visit. Return in about 6 months (around 05/21/2022) for Recheck. Note created using voice dictation software. IR COIL WINDER documented in this encounter Plan of Treatment Not on filedocumented as of this encounter Visit Diagnoses Diagnosis Dyslipidemia (high LDL; low HDL) - Prima ry Other and unspecified hyperlipidemia Type 2 diabetes mellitus without complic ation, without long-term current use of insulin (HCC) documented in this encounter Care Teams Contact Center Professional Relationship Specialty Start Date End Date Jennifer Foster MD PCP - General 05/13/[address] [place] [address] documented as of this encounter
--- OUTSIDE RECORDS SUMMARY | 2022-06-07 07:23 | XMS_ITS | Encounter Summary ---
:1970 Author Organization [facility] Address [address] [place] [address] Care Team Providers Name Role Phone Jennifer Foster MD Primary Care Provider Reason for Referral Consultation (Routine) - Authorized Specialty Diagnoses / Procedures Referred By Contact Refer red To Contact Nutrition Education / Diagnoses Type 2 diabetes mellitus without complication, without long-term current use of insulin (HCC) Rhett Spear, Nutrition MD [address] [place] [address] Referral ID Status Reason Start Expiration Visits Visits Date Date Requested Authorized [id number] Authorized Specialty 08/21/2022 1 1 Services 1 Required Scheduling Instructions Staff from this department will contact the patient to schedule an appointment. RVISOR MAINTENANCE Reason for Visit Reason Comments Follow-up lab results Encounter Details Date Type Department Care Team Description 08/21/2021 Office Visit Rhett Oh, Type 2 diabetes mellitus wit hout complication, without long- term current use of insulin (HCC) (Primary Dx); [address] [facility] [address] Dyslipidemia (high LDL; low HDL) [place], [place] [address] [facility] [address] [place], [place] [phone] Social History Tobacco Use Types Packs/Day Years Used Date Never Smoker Smokeless Tobacco: Current User Chew Alcohol Use Standard Drinks/Week Comments Not Currently 0 (1 standard drink = 0.6 oz pure alcoho l) Sex Assigned at Date Recorded Not on file documented as of this encounter Last Filed Vital Signs Vital Sign Reading Time Taken Comments Blood Pressure 112/74 08/21/2021 3:25 PM SUPERVISOR MAINTENANCE Pulse 84 08/21/2021 3:25 PM SUPERVISOR MAINTENANCE Temperature 36.8 ??C (98.3 ??F) 08/21/2021 3:25 PM SUPERVISOR MAINTENANCE Respiratory Rate 12 08/21/2021 3:25 PM SUPERVISOR MAINTENANCE Oxygen Saturation 93% 08/21/2021 3:25 PM SUPERVISOR MAINTENANCE Inhaled Oxygen Concentration - - Weight 86.6 kg (191 lb) 08/21/2021 3:25 PM SUPERVISOR MAINTENANCE Height - - Body Mass Index 28.78 08/14/2021 2:32 PM SUPERVISOR MAINTENANCE documented in this encounter Progress Notes Rhett Spear MD - 08/21/2021 3:20 PM CST Subjective Patient ID: Colten Jay is a 51 y.o. male. Chief Complaint Patient presents with ??? Follow-up lab results HPI Patient had labs done recently, found to have A1C 8.9 and fasting glucose of 182. His mother has diabetes. Walks a lot at work. No dedicated exercise. States he does like to eat sweets. Does not drink much soda or sweetened beverages. He has no questions. The following portions of the patient's chart were reviewed in this encounter and updated as appropriate: Tobacco Allergies Meds Med Hx Current Outpatient Medications Medication Instructions ??? atorvastatin (LIPITOR) 10 mg, Oral, Daily ??? benzonatate (TESSALON) 200 mg, Oral, 3 times daily PRN, Do not crush or chew. ??? metFORMIN XR (GLUCOPHAGE-XR) 500 MG 24 hr tablet Take 1 tablet (500 mg total) by mouth 1 (one) time each day with dinner for 7 days, THEN 2 tablets (1,000 mg total) 1 (one) time each day with dinner for 7 days, THEN 3 tablets (1,500 mg total) 1 (one) time each day with dinner for 7 days, THEN 4 tablets (2,000 mg total) 1 (one) time each day with dinner. Do not crush, chew, or split. . ROS ROS done as noted in HPI Objective Visit Vitals BP 112/74 (BP Location: Left arm, Patient Position: Sitting, BP Cuff Size: Large adult) Pulse 84 Temp 36.8 ??C (98.3 ??F) (Temporal) Resp 12 Wt 86.6 kg (191 lb) SpO2 93% BMI 28.78 kg/m?? Smoking Status Never Smoker BSA 2.04 m?? Physical Exam Vitals reviewed. Constitutional: Appearance: Normal appearance. He is not diaphoretic. Cardiovascular: Rate and Rhythm: Normal rate and regular rhythm. Feet: Right foot: Protective Sensation: 6 sites tested. 6 sites sensed. Left foot: Protective Sensation: 6 sites tested. 6 sites sensed. Assessment/Plan Diagnosis Plan 1. Type 2 diabetes mellitus without complication, without long-term current use of insulin (HCC) metFORMIN XR (GLUCOPHAGE-XR) 500 MG 24 hr tablet Ambulatory referral to Nutrition Services atorvastatin (Lipitor) 10 MG tablet Microalbumin/Creatinine Ratio Hemoglobin A1c 2. Dyslipidemia (high LDL; low HDL) Discussed new diabetes diagnosis with patient including general diet and exercise recommendations, medication therapy as above, oil sprayer referral, common diabetic complications with annual monitoring of microalbumin, eye exam and foot exam, and general diabetic foot cares. Discussed home glucose monit oring and patient states he would like to avoid doing that for now. I will try and readdress this in3 months. HCM: declines Flu and PPSV23 today Declines Colon cancer screening, states he will readdress this at follow up in 3 months Total time spent in patient care was over 20 minutes which included the pre- work, visit work, and post-visit work. Return in about 3 months (around 11/21/2021) for Recheck and A1C. Note created using voice dictation software. RVISOR MAINTENANCE documented in this encounter Plan of Treatment Scheduled Referrals Name Type Priority Associated Order Schedule Diagnoses Ambulatory referral Outpatient Referral Routine Type 2 diabete s Ordered: to Nutrition mellitus without 08/21/2021 Services complication, without long-term current use of insulin (HCC) documented as of this encounter Results (ABNORMAL) Microalbumin/Creatinine Ratio (11/21/2021 3:38 PM SUPERVISOR MAINTENANCE) Analysis Performed At [facility] Time Signature Microalbumin,m 30.2 (H) 0.0 - 16.6 11/22/2021 JAY g/day mg/L 1:48 PM [facility] Comment: . Creatinine, Urine 125 mg/dL 11/22/2021 1:[address] [facility] Comment: No established reference range. Microalb/Creat Ratio 24 (H) 0 - 16 mg/g 11/22/2021 1:48 P M [facility] Specimen Anatomical Collection Method Collection Time Receive d Time (Source) Location / / Volume Laterality Urine 11/21/2021 3:38 PM 2 SUPERVISOR MAINTENANCE 12:37 PM SUPERVISOR MAINTENANCE Rhett Spear MD LAB URINE ORDERABLES Performing Organization Address City/[facility] Phon e Number [facility] [address] [place] [address] (ABNORMAL) Hemoglobin A1c (11/21/2021 3:32 PM SUPERVISOR MAINTENANCE) Analysis Performed At [facility] Time Signature Hemoglobin A1C 6.2 (H) 4.0 - 5.6 11/22/2021 [place] % A1C 1:47 PM [facility] Comment: Reference Range [...] (Blood, 11/21/2021 3:32 PM 11/22/19 22 Venous) SUPERVISOR MAINTENANCE 12:37 PM SUPERVISOR MAINTENANCE Rhett Spear MD LAB BLOOD ORDERABLES Performing Organization Address City/[facility]/ZIP [facility] Ph[place] e Number [facility] [address] [place] [address] documented in this encounter Visit Diagnoses Diagnosis Type 2 diabetes mellitus without complic ation, without long-term current use of insulin (HCC) - Primary Dyslipidemia (high LDL; low HDL) Other and unspecified hyperlipidemia documented in this encounter Care Teams Tubing Tester Relationship Specialty Start Date End Date Jennifer Foster MD PCP - General 05/13/[address] [place] [address] documented as of this encounter
--- NOTE | 2022-06-07 08:53 | W.ANESCHARGE ---
Anesthesia Charges Start Date/Time Anesthesia Start Date: 06/07/22 Anesthesia Start Time: 08:15 Stop Date/Time Anesthesia Stop Date: 06/07/22 Anesthesia Stop Time: 08:52 Summary Emergency: No
--- NOTE | 2022-06-07 09:30 | W.ANESCHARGE ---
Anesthesia Charges Start Date/Time Anesthesia Start Date: 06/07/22 Anesthesia Start Time: 08:15 Stop Date/Time Anesthesia Stop Date: 06/07/22 Anesthesia Stop Time: 08:52 Summary Emergency: No
== END 2022-06-07 07:20 | disposition home or self-care (01) ==
PROVIDERS: PCP Family Medicine; Visit Provider Surgery
DX: Z12.11 Encounter for screening for malignant neoplasm of colon (principal); K63.5 Polyp of colon
CPT/HCPCS: 00811; 45385; 88305; J2704